=== PATIENT | female | born 1975 | race Caucasian/White ===

== ENCOUNTER 2018-02-18 08:56 | Inpatient (IN) | payer OTHER ==
[~2018-02-18] VITALS: Ht 165.1 cm; Wt 127.0 kg
[~2018-02-18 08:56] MED LIST: AMBIEN PAK10 MG; AUGMENTIN1 TAB.CHE2; CALCIUM STOOL240 MG; TYLENOL 325MG325 MG
[2018-02-18] MEDS ORDERED: LAMICTAL100 MG (16:02)
[2018-02-18] MEDS ORDERED: CYMBALTA60 MG (16:02)
[2018-02-18] MEDS ORDERED: CLONAZEPAM1 M1 (16:02)
[2018-02-18] MEDS ORDERED: CLONAZEPAM2 M1 (16:02)
[2018-02-18] MEDS ORDERED: REMERON15 MG (16:03)
[2018-02-18] MEDS ORDERED: NORFLEX 60 MG (16:03)
[2018-02-18] MEDS ORDERED: VALTREX1000 MG (16:03)
[2018-02-18] MEDS ORDERED: TORADOL60 MG (16:03)
[2018-02-26] MEDS ORDERED: NORFLEX100MG PO (09:17)
[2018-02-28] MEDS ORDERED: CODE1TAB37 PO (11:54)
[2018-02-28] MEDS ORDERED: ZANTAC150 MG PO (11:55)
[2018-02-28] MEDS ORDERED: DOCUSATE SODIU100 MG PO (12:10)
== END 2018-02-28 13:11 | disposition home health service (06) | DRG 743 ==
LOC: OB/GYN 02-25 07:18 → O/R 02-25 07:18 → SURH 02-25 12:30 → OB/GYN 02-25 16:41
PROVIDERS: Obstetrics & Gynecology
PROC: 0UT70ZZ Resection of Bilateral Fallopian Tubes, Open Approach (ICD-10-PCS; 2018-02-25)
PROC: 0TJB8ZZ Inspection of Bladder, Via Natural or Artificial Opening Endoscopic (ICD-10-PCS; 2018-02-25)
PROC: 0UT90ZZ Resection of Uterus, Open Approach (ICD-10-PCS; principal; 2018-02-25 12:30)
PROC: 0UT20ZZ Resection of Bilateral Ovaries, Open Approach (ICD-10-PCS; 2018-02-25 12:30)
DX: D25.1 Intramural leiomyoma of uterus (principal); N92.0 Excessive and frequent menstruation with regular cycle; N81.11 Cystocele, midline; M54.5 Low back pain; G89.18 Other acute postprocedural pain